=== PATIENT | female | born 1985 | race Caucasian/White ===

== ENCOUNTER 2017-08-15 05:02 | Day surgery (SDC) | payer OTHER ==
[2017-08-14 12:44] VITALS: BMI 22.6
--- NOTE | 2017-08-15 10:06 | HP ---
History & Physical Update - History History: No Change (H&P confirmed to be unchanged from 08/07/17 Consent signed and witnessed all questions answered) - Physical Physical: No Change - Assessment Assessment: No Change - Plan Plan: No Change
[2017-08-15] MEDS ORDERED: IBUPROFEN 800 MG/8 ML IJ IVPB PRN (11:06)
[2017-08-15] MEDS ORDERED: ONDANSETRON 4 MG/2 ML VIAL IVPUSH PRN (11:06)
[2017-08-15] MEDS ORDERED: oxyCODONE HCL 5 MG TABLET PO PRN (11:06)
[2017-08-15] MEDS ORDERED: IBUPROFEN 600 MG TABLET (FP) PO PRN (11:06)
--- NOTE | 2017-08-15 11:06 | OP ---
Operative Note - Note: Operative Date: 08/15/17 Pre-Operative Diagnosis: 32 yo P0 @ 9wks with Missed Ab Operation: Suction Curetage Findings: 1. 9wk size boggy uterus 2. Malodorous urine sent for culture Post-Operative Diagnosis: Same as Pre-op Surgeon: Emma Borrego Anesthesiologist/WET PROCESS MILLER HEAD: Kartik Norris Anesthesia: MAC Specimens Removed: Products of conseption Estimated Blood Loss (mls): 500 Drains, Volume Out (mls): 110 Fluid Volume Replaced (mls): 600 Operative Report Dictated: Yes
[2017-08-15] MEDS ORDERED: MIDAZOLAM HCL 2 MG/2 ML SINGLE DOSE VIAL ONE (11:08)
[2017-08-15] MEDS ORDERED: ELECTROLYTE-148 SOLN 1,000 ML IV SCH (11:15)
[2017-08-15] MEDS ORDERED: ceFAZolin SODIUM 1 GM VIAL ONE (11:18)
[2017-08-15] MEDS ORDERED: DEXAMETHASONE SOD PHOSPHATE 4 MG/1 ML VIAL ONE (11:19)
[2017-08-15] MEDS ORDERED: LIDOCAINE HCL/PF 2% SDV 5ML VIAL ONE (11:20)
[2017-08-15] MEDS ORDERED: PROPOFOL 20 ML ONE (11:20)
[2017-08-15] MEDS ORDERED: ceFAZolin SODIUM 1 GM VIAL IVPB ONE (11:25)
[2017-08-15] MEDS ORDERED: MEPERIDINE HCL CARPU-JECT 25 MG/1 ML DISP.SYRIN ONE (12:18)
[2017-08-15] MEDS ORDERED: MEPERIDINE HCL CARPU-JECT 25 MG/1 ML DISP.SYRIN IVPUSH ONE (12:35)
[2017-08-15] MEDS ORDERED: LACTATED RINGERS SOLUTION 1,000 ML IV SCH (12:45)
[2017-08-15 13:21] LABS: BASO % 0.2 % (0-2.0); EOS % 0.6 % (0-4.5); HEMATOCRIT 34.4 % (32.4-45.2); HEMOGLOBIN 11.8 GM/dL (10.7-15.3); LYMPH % 11.5 % (8-40); MCH 31.8 pg (25.7-33.7); MCHC 34.3 g/dl (32.0-36.0); MEAN CELL VOLUME 92.9 fl (80-96); MEAN PLT VOLUME 9.1 fl (7.5-11.1); MONO % 1.8 % (3.8-10.2); NEUT % 85.9 % (42.8-82.8); PLATELET COUNT 232 K/MM3 (134-434); RDW 12.6 % (11.6-15.6); WHITE BLOOD COUNT 11.6 K/mm3 (4.0-10.0)
[2017-08-15 13:39] LABS: INR 1.02 (0.82-1.09); PROTHROMBIN TIME (PATIENT) 11.5 SEC (9.7-13.0)
[2017-08-15 13:52] VITALS: TEMP 98.4
[2017-08-15 15:22] VITALS: BP 99/67; PULSE 86
--- NOTE | 2017-08-15 22:09 | OP ---
DATE OF OPERATION: 08/15/2017 PREOPERATIVE DIAGNOSIS: A 32-year-old, para 0, at 9 weeks, with missed . OPERATION: Suction curettage. FINDINGS: A 9 weeks size boggy uterus and malodorous urine sent for culture. POSTOPERATIVE DIAGNOSIS: A 32-year-old, para 0, at 9 weeks, with missed . SURGEON: Rosalva Borrego MD ANESTHESIOLOGIST: Karitk Norris MD ANESTHESIA: MAC. SPECIMENS SENT TO PATHOLOGY: Products of conception. DESCRIPTION OF THE OPERATIVE PROCEDURE: After assuring informed consent, patient was brought to the operating room, where she was placed in dorsal lithotomy position. Anesthesia was administered. Perineum and vagina were prepped and draped in sterile fashion. The Chaidez retractors were placed in the vagina. Anterior cervical lip was grasped with a single-tooth tenaculum and cervix was gradually dilated to accommodate size 10 plastic curette up to the 33-gauge Gorman dilators. The uterine contents were suctioned after the vacuum suction was activated. A gauge 5 surgical curette was used to assure the emptiness of the uterus. However, significant bleeding was encountered and Radiology requested to bring sonographic guidance, which was obtained, so procedure was completed under sonographic guidance. The emptiness of the uterus was assured by suctioning uterine contents one more time, and thin endometrial stripe was visualized sonographically. The uterus was also found to be intact sonographically. All instruments and sponges were removed from the vagina and uterus. Instrument and sponge count was correct x2. Estimated blood loss was 500 mL. Urine output was 110 mL and fluid volume replaced was 600 mL. Patient tolerated procedure well and was brought to the recovery room in stable condition. ROSALVA BORREGO M.D. [id number]
--- NOTE | 2017-08-16 15:42 | PATH ---
Surgical Pathology Report Patient Name: ELIUD ALVES [facility]. Rec. #: [id number] /Age/Gender: 1985 (Age: 32) / F Account: [id number] Location: [facility] SURGICAL Taken: 08/15/2017 Received: 08/15/2017 Reported: 08/16/2017 Physicians: Emma Borrego M.D. Specimen(s) Received PRODUCTS OF CONCEPTION Clinical History Missed Final Diagnosis PRODUCTS OF CONCEPTION, DILATION AND CURETTAGE: IMMATURE CHORIONIC VILLI AND DECIDUA CONSISTENT WITH PRODUCTS OF CONCEPTION. Electronically Signed Brii Nunez M.D. Gross Description Received in formalin labeled "products of conception," is a 14.5 x 11.5 x 2.8 cm aggregate of madera-red soft tissue fragments admixed with blood clot. Villous tissue is identified. No somatic tissue is identified. A inbound sales representative portion is submitted in one cassette. /08/15/2017 saudi08/15/2017
== END 2017-08-15 15:20 | disposition home or self-care (01) ==
LOC: JASU-SURG 05:02
PROVIDERS: ATTEND Obstetrics & Gynecology
PROC: 10D17ZZ Extraction of Products of Conception, Retained, Via Natural or Artificial Opening (ICD-10-PCS; principal; 2017-08-15 10:30)
DX: O02.1 Missed abortion (principal); Z3A.09 9 weeks gestation of pregnancy
CPT/HCPCS: 36415; 76998-TC; 85025; 85384; 85610; 85730; 86850; 86900; 86901; 87086; 87186; 88305-TC; 94760

== ENCOUNTER 2018-06-15 11:32 | Day surgery (SDC) | payer OTHER ==
[2018-06-14 09:05] VITALS: BMI 22.9
[2018-06-15] MEDS ORDERED: ONDANSETRON 4 MG/2 ML VIAL IVPUSH PRN ×3 (12:51→14:42)
[2018-06-15] MEDS ORDERED: oxyCODONE HCL 5 MG TABLET PO PRN ×3 (12:51→14:42)
[2018-06-15] MEDS ORDERED: PROMETHAZINE HCL 25 MG/1 ML VIAL IVPB PRN (12:51)
[2018-06-15] MEDS ORDERED: LACTATED RINGERS SOLUTION 1,000 ML IV SCH ×2 (13:00→14:45)
--- NOTE | 2018-06-15 13:15 | HP ---
History & Physical Update - History History: No Change - Physical Physical: No Change - Assessment Assessment: No Change - Plan Plan: No Change (Chart reviewed, H&P unchanged from 05/31/2018 Consent signed All questions answered)
[2018-06-15] MEDS ORDERED: IBUPROFEN 600 MG TABLET (FP) PO PRN (13:16)
[2018-06-15] MEDS ORDERED: IBUPROFEN 800 MG/8 ML IJ IVPB PRN (13:16)
--- NOTE | 2018-06-15 13:16 | OP ---
Operative Note - Note: Operative Date: 06/15/18 Pre-Operative Diagnosis: 33yo P0 with DARIEN 3 on PAP Operation: LEEP and ECC Findings: 1. Cone 2. Top hat Post-Operative Diagnosis: Same as Pre-op Surgeon: Emma Borrego Anesthesiologist/CUTTER BRAKE LINING: Cuauhtemoc Umana Anesthesia: MAC Estimated Blood Loss (mls): 1 Drains, Volume Out (mls): 100 Fluid Volume Replaced (mls): 400 Operative Report Dictated: Yes
[2018-06-15] MEDS ORDERED: ELECTROLYTE-148 SOLN 1,000 ML IV SCH (13:30)
[2018-06-15] MEDS ORDERED: PROPOFOL 20 ML ONE (13:50)
[2018-06-15] MEDS ORDERED: MIDAZOLAM HCL 2 MG/2 ML SINGLE DOSE VIAL ONE (13:52)
[2018-06-15] MEDS ORDERED: LIDOCAINE HCL 1%, 10 MG/ML (20ML VIAL) ONE (13:56)
[2018-06-15] MEDS ORDERED: LIDOCAINE HCL 1%, 10 MG/ML (20ML VIAL) INF ONE (14:10)
[2018-06-15] MEDS ORDERED: IODINE/POTASSIUM IODIDE 5%/10% 14 ML BOTTLE NR ONE (14:15)
[2018-06-15 16:58] VITALS: TEMP 98
[2018-06-15 18:07] VITALS: BP 122/80; PULSE 80
--- NOTE | 2018-06-18 18:57 | OP ---
DATE OF OPERATION: 06/15/2018 PREOPERATIVE DIAGNOSIS: A 33-year-old para 0 with cervical intraepithelial neoplasia III on Pap smear and colposcopy. OPERATION: LEEP procedure (loop electrosurgical excision procedure) and ECC (endocervical curettage). FINDINGS AND SPECIMENS: Cone biopsy and top hat and ECC (endocervical curettage). POSTOPERATIVE DIAGNOSIS: A 33-year-old para 0 with cervical intraepithelial neoplasia III on Pap smear and colposcopy. SURGEON: Emma Borrego MD ANESTHESIOLOGIST: Gio Umana MD ANESTHESIA: MAC. DESCRIPTION OF OPERATIVE PROCEDURE: After assuring informed consent, patient was brought to the operating room where she was placed in dorsal lithotomy position. Vagina was prepped with acid. Patient was draped. Cervix was visualized by placing a retractor into the vagina. Anterior cervical lip was articulated with single-tooth tenaculum. Cervix was colored with Lugol's, and condition zone with small lesions was visualized. Narrow LEEP was performed, shallow, with 2 x 1 cm excision electrode. The small top hat was performed, was 1 x 1 cm loop. The ECC was performed as well. The excision base was cauterized by using the rollerball Bovie. The entire procedure was performed at Bovie setting of 35. Excellent hemostasis was noted. All instruments were removed from cervix and vagina. Patient tolerated procedure well. Instrument and sponge count was correct x2. Estimated blood loss: 1 mL. Patient drained 100 mL of urine intraoperatively and received 400 mL of IV fluids. Obey [id number]
--- NOTE | 2018-06-21 10:14 | PATH ---
Surgical Pathology Report Patient Name: ELIUD ALVES [facility]. Rec. #: [id number] /Age/Gender: 1985 (Age: 33) / F Account: [id number] Location: [facility] SURGICAL Taken: 06/15/2018 Received: 06/18/2018 Reported: 06/21/2018 Physicians: Emma Borrego M.D. 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 DARIEN 3 PRESENT AT THE MARGIN (FOCAL). DARIEN 1 ALSO IDENTIFIED. COMMENT: IMMUNOHISTOCHEMICAL STAINS (AT BLOCK A3 and A4) PERFORMED AT [facility] ([id number]) SHOW FULL THICKNESS, SOLID STAINING FOR P16; KI-67 STAINING SHOWS PROLIFERATION IN ALL CELL LAYERS. POSITIVE AND NEGATIVE CONTROLS (INTERNAL IF APPLICABLE) SHOW APPROPRIATE RESULTS. B. TOP HAT, EXCISION: ENDOCERVICAL TISSUE WITH FOCAL SQUAMOUS METAPLASIA. NEGATIVE FOR DYSPLASIA. C. ENDOCERVICAL CURETTINGS: ENDOCERVICAL TISSUE AND SQUAMOUS EPITHELIUM WITH NO SIGNIFICANT PATHOLOGIC CHANGE. SEPARATE FEW FRAGMENTS OF PROLIFERATIVE ENDOMETRIUM. Electronically Signed Ranjith Bruno M.D. Gross Description A. Received in formalin labeled "LEEP," is a 1.1 cm in diameter annular portion of soft tissue, consistent with a cervical LEEP cone biopsy. There is a suture present marking the 6:00 aspect of the specimen, per the surgeon. The specimen is partially surfaced by a madera-pink mucosa. There are multiple additional madera tissue fragments separately received within the same container. Senior Accounting Specialist sections are submitted in 5 cassettes as follows: 1-12:00 to 3:00; 2-3:00 to 6:00; 3-6:00 to 9:00; 4-9:00 to 12:00; 5-separately received tissue fragments. B. Received in formalin labeled "top hat," is a 0.9 cm in diameter annular portion of tissue, consistent with a portion of cervix. There is a suture present marking the 12:00 aspect of the specimen, per the surgeon. There is no mucosa present. The specimen is inked blue and serially sectioned. The specimen is entirely submitted in 4 cassettes as follows: 1-12:00 to 3:00; 2-3:00 to 6:00; 3-6:00 to 9:00; 4-9:00 to 12:00. C. Received in formalin labeled "endocervical curettings," is a 2.0 x 1.8 x 0.3 cm aggregate of madera-brown soft tissue fragments admixed with mucus and blood clot. The formalin is filtered and the specimen is entirely submitted in one cassette. 06/18/2018 [facility]06/18/2018
== END 2018-06-15 18:10 | disposition home or self-care (01) ==
LOC: JASU-SURG 11:32
PROVIDERS: ATTEND Obstetrics & Gynecology
PROC: 0UBC7ZX Excision of Cervix, Via Natural or Artificial Opening, Diagnostic (ICD-10-PCS; principal; 2018-06-15 13:00)
DX: D06.7 Carcinoma in situ of other parts of cervix (principal)
CPT/HCPCS: 84703; 88305-TC; 94760